=== PATIENT | male | born 1975 | race Caucasian/White ===

== ENCOUNTER → 2020-07-03 10:44 | Outpatient (BNVA) | payer MEDICARE, MEDICAID, SELFPAY | PROVIDERS: Family Provider Family Medicine; PCP Family Medicine; Visit Provider Nurse Practitioner | DX: Z11.59 Encounter for screening for other viral diseases (principal) | CPT/HCPCS: 87635 ==

== ENCOUNTER → 2021-06-23 09:26 | Outpatient (BNVA) | payer MEDICARE, MEDICAID, SELFPAY | PROVIDERS: Family Provider Family Medicine; PCP Family Medicine; Visit Provider Family Medicine | DX: F80.9 Developmental disorder of speech and language, unspecified (principal); F84.9 Pervasive developmental disorder, unspecified; Z76.89 Persons encountering health services in other specified circumstances; Z83.49 Family history of other endocrine, nutritional and metabolic diseases | CPT/HCPCS: 80053; 82103; 84443; 85025 ==

== ENCOUNTER → 2022-12-18 11:17 | Outpatient (BNVA) | payer MEDICARE, MEDICAID, SELFPAY | PROVIDERS: Family Provider Family Medicine; PCP Family Medicine; Visit Provider Family Medicine | DX: Z00.00 Encounter for general adult medical examination without abnormal findings (principal); Z13.6 Encounter for screening for cardiovascular disorders; Z83.49 Family history of other endocrine, nutritional and metabolic diseases; Z12.11 Encounter for screening for malignant neoplasm of colon; F84.9 Pervasive developmental disorder, unspecified; F80.9 Developmental disorder of speech and language, unspecified; Z76.89 Persons encountering health services in other specified circumstances | CPT/HCPCS: 80053; 80061; 82103; 85025 ==

== ENCOUNTER → 2023-01-19 13:38 | Outpatient (BNVA) | payer MEDICARE, MEDICAID, SELFPAY | PROVIDERS: Family Provider Family Medicine; PCP Family Medicine; Visit Provider Surgery | DX: Z80.0 Family history of malignant neoplasm of digestive organs (principal) | CPT/HCPCS: 99203; 99214 ==

== ENCOUNTER 2023-02-05 07:12 | Day surgery (SDC) | payer MEDICARE, MEDICAID, SELFPAY ==
[2023-02-03 14:10] VITALS: BMI 29.5
[2023-02-05 07:28] VITALS: BP 159/92; PULSE 70; RESP 16; TEMP 36.4; O2SAT 97
[2023-02-05] MEDS: sodium chloride 0.9% 1,000 ML 30 ML IV (07:41)
--- NOTE | 2023-02-05 07:44 | ANES.PREANE2 ---
Pre-Anesthetic Assessment Height/Weight: Height 1.75 m Weight 90.718 kg Temp Pulse Resp BP Pulse Ox O2 Del Method 97.5 F L 70 16 159/92 97 Room Air 02/05/23 07:28 02/05/23 07:28 02/05/23 07:28 02/05/23 07:28 02/05/23 07:28 02/05/23 07:28 Preop Diagnosis: family history of malignant neoplasm of colon Operation Date: 02/05/23 09:30 [place] Procedures p 89210 colon Z80.0(Not Applicable) - Alejandro Soler DO Familial anesthetic complications: never had anesthesia. Was Beta Luis taken within 24 hours: N/A Was Clonidine taken within 24 hours: N/A Last intake: Intake Last Liquid Date 02/05/23 Last Liquid Time 06:00 Last Solid Date 02/03/23 Social No alcohol and No tobacco Exam alert, oriented x 3, clear to auscultation bilaterally and regular rate & rhythm Airway Submandibular: within normal limits Cervical ROM: within normal limits Mallampati: Class I Dentition: chipped Comments: Comments: missing teeth Pulmonary None reported CV/HEM None reported None reported Hepatic None reported GI None reported Metabolic None reported Musc/skel None reported Neuropsych 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 Anesthetic Plan ASA status: 1 Anesthesia: MAC Medications/Allergies Home Medications Medication Instructions Recorded Confirmed Last Taken Type acetaminophen 325 mg tablet 325 mg PO QID PRN Pain 01/19/23 02/05/23 Unknown History (Tylenol) Allergies Allergy/AdvReac Type Severity Reaction Status Date / Time No Known Allergies Allergy Verified 02/05/23 07:27 Current Medications Generic Name Dose Route Start Last Admin Trade Name Freq PRN Reason Stop Dose Admin Sodium Chloride 1,000 mls @ 30 mls/hr 02/05/23 07:30 02/05/23 07:41 Sodium Chloride 0.9% IV 02/06/23 07:29 30 mls/hr .Q24H CRUZ Administration PFSH Anesthesia Medical History Hemorrhoids 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
--- NOTE | 2023-02-05 09:15 | W.PM.OPSUD ---
Surgery/Procedure H&P Update DATE OF PROCEDURE: February 05, 2023 DATE H&P PERFORMED: 01/19/23 H&P UPDATE INFORMATION: I have reviewed H&P completed within last 30 days, I have examined patient prior to procedure and No changes to prior documentation PREOP DIAGNOSIS: family history of malignant neoplasm of colon PLANNED PROCEDURE: Operation Date: 02/05/23 09:30 Proposed Procedures p [id number] colon Z80.0(Not Applicable) - Alejandro Soler DO
[2023-02-05 09:42] VITALS: BP 115/81; PULSE 74; RESP 14; TEMP 36.1; O2SAT 94
[2023-02-05 09:55] VITALS: BP 127/88; PULSE 64; RESP 16; O2SAT 97
[2023-02-05 10:08] VITALS: BP 122/84; PULSE 62; RESP 16; O2SAT 96
--- NOTE | 2023-02-05 16:07 | ANE.PACU2 ---
Inpatient post-anesthesia follow up: Airway intact: Yes Vital signs: Temperature 97 F Pulse Rate 62 Respiratory Rate 16 Blood Pressure 122/84 Pulse Oximetry 96 Oxygen Delivery Me thod Room Air Oxygen Flow Rate Fraction of Inspir ed Oxygen Hydration adequate: Yes Nausea and vomiting: No Pain level: 1 Mental status: Baseline
== END 2023-02-05 10:26 | disposition home or self-care (01) ==
PROVIDERS: PCP Family Medicine; Visit Provider Surgery
PROC: 0DJD8ZZ Inspection of Lower Intestinal Tract, Via Natural or Artificial Opening Endoscopic (ICD-10-PCS; CPT 45378; principal; 2023-02-05 09:30)
DX: Z12.11 Encounter for screening for malignant neoplasm of colon (principal); Z80.0 Family history of malignant neoplasm of digestive organs; F84.9 Pervasive developmental disorder, unspecified
CPT/HCPCS: 45378; G0121; J2704; J7030

== ENCOUNTER → 2023-02-23 17:13 | Outpatient (BNVA) | payer MEDICARE, MEDICAID, SELFPAY | PROVIDERS: PCP Family Medicine; Visit Provider Surgery | DX: Z09 Encounter for follow-up examination after completed treatment for conditions other than malignant neoplasm (principal) | CPT/HCPCS: 99212 ==

== ENCOUNTER 2023-08-31 11:41 | Emergency (ER) | payer MEDICARE, MEDICAID, SELFPAY ==
[2023-08-31 12:09] VITALS: BP 145/96; PULSE 93; RESP 18; TEMP 36.6; O2SAT 97; BMI 31.7
[2023-08-31 12:20] LABS: Basophils % 0.2 %; Eosinophils # 0.1 10^3/uL (0.0-0.8); Eosinophils % 2.1 %; Hematocrit 46.2 % (37-53); Lymphocytes # 2.3 10^3/uL (0.8-4.8); Lymphocytes % 43.7 %; Mean Corpuscular HGB Conc 35.5 g/dL (30-55); Mean Corpuscular Hemoglobin 30.3 pg (27-33); Mean Corpuscular Volume 85.4 fl (82-101); Mean Platelet Volume 9.4 fL (7.4-10.4); Monocytes # 0.5 10^3/uL (0.2-0.9); Neutrophils % 44.8 %; Nucleated Red Blood Cells % 0 %; Platelet Count 202 10^3/cmm (157-399); Red Blood Count 5.41 10^6/uL (3.85-5.65); Red Cell Distribution Width 12.7 % (12.1-15.1); White Blood Count 5.35 10^3/uL (3.29-11.43)
[2023-08-31 12:32] LABS: Alanine Aminotransferase 51 U/L (0-41); Albumin Level 4.2 g/dL (3.5-5.2); Alkaline Phosphatase 64 U/L (40-130); Anion Gap 13.8 (5-19); Aspartate Amino Transferase 33 U/L (0-40); Blood Urea Nitrogen 10 mg/dL (6-20); Calcium 9.2 mg/dL (8.5-10.5); Carbon Dioxide 26 mmol/L (22-29); Chloride 104 mmol/L (98-107); Globulin 3.3 g/dL (1.3-4.6); Glomerular Filtration Rate 90.8 mL/min (90-130); Glucose 149 mg/dL (65-115); Osmolality Calculated 292 mOsm/kg (285-295); Potassium 3.8 mmol/L (3.5-5.1); Sodium 140 mmol/L (136-145); Total Bilirubin 0.7 mg/dL (0.15-1.2); Total Protein 7.5 g/dL (6.6-8.7)
--- NOTE | 2023-08-31 12:41 | W.ED.GIBLEED ---
HPI - GI Bleed General: Chief complaint: COVID symptoms Stated complaint: sent over by urgent care, possible internal bleed Time Seen by Provider: 08/31/23 12:22 Source: patient and family (father) Mode of arrival: ambulatory Limitations: no limitations History of Present Illness: Patient is a 48-year-old male presents to ED today along with his father as he is mentally disabled here after they were sent from urgent care for concerns of bright red blood per rectum. According to the father they went to urgent care because patient has had a head cold . He reportedly tested positive for COVID while at urgent care. They mentioned he had had an episode of a small amount of bright red blood per rectum after straining to have a hard bowel movement and was sent to the emergency department for further evaluation of this. Father seems somewhat disgruntled upon his arrival here stating that patient has had this issue before when he has hard bowel movement stating he has a history of hemorrhoids. Patient is not having any rectal pain. Father states he just had one episode with a small amount of bright red blood and this is since stopped. He states he was not even concerned about the bleeding and simply went to urgent care because of the head cold . MD complaint: blood on toilet paper and other (small amount of BRBPR) Onset (ago): day(s) Severity: mild Exacerbating factors: other (straining during hard BM) Associated symptoms: Denies chills, fever(s), headache(s), malaise, nausea, rash or vomiting Treatments Prior to Arrival: none Review of Systems Const: Denies: fever(s), chills, body aches, fatigue or malaise Eyes: Denies: change in vision, blurry vision, photophobia, floaters or seeing flashes ENMT: Reports: nasal discharge and nasal congestion; Denies: throat pain, odynophagia or ear or mastoid pain Card: Denies: chest pain Resp: Denies: dyspnea, productive cough, non-productive cough or chest congestion GI: Reports: constipation (chronic) and other (small amount of BRBPR); Denies: nausea, vomiting, diarrhea, rectal pain, rectal swelling, rectal itching, melena or white/light colored stool Skin/Breast: Denies: rash Neuro: Denies: headache(s), numbness in extremities, weakness in extremities or sensory changes [facility] ED PFSH: Medical History 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 Hemorrhoids Surgical History No history of previous surgery Family History Father Hhewc-1-pnzjphbaylu deficiency Diabetes Hypertension CAD (coronary artery disease) Unknown Cancer colon cancer Denies family history of Anesthesia complication Bleeding disorder Social History Smoking and tobacco/nicotine status: never used tobacco/nicotine Alcohol intake: never Substance/Drug Use: never Lives independently: No Household members: family Marital status: Single Number of children: 0 Current occupational status: employed Current occupation: [employer] Physical Exam Const: COMMON NORMALS: no acute distress, average body habitus, patient oriented x3, no limitations, healthy appearing, alert and well nourished GENERAL APPEARANCE: cooperative HENMT: COMMON NORMALS: normocephalic, atraumatic, hearing grossly normal bilaterally, external ears normal, EAC's normal, TM's normal bilaterally, Normal external nose present, Normal nasal mucous membranes and turbinates present, moist oral mucous membranes, oropharynx normal, dentition normal and gingiva normal HEAD & SCALP: normal to inspection, normocephalic and atraumatic FACE & SINUS: normal facial exam NOSE: Normal external nose present and Normal nasal mucous membranes and turbinates present EXTERNAL EAR: Yes external ears normal EXTERNAL AUDITORY CANAL: EAC's normal TYMPANIC MEMBRANE: TM's normal bilaterally Eye: GENERAL EYE: appearance normal, both eyes and all related structures Neck/C-Spine: COMMON NORMALS: no lymphadenopathy Resp: COMMON NORMALS: normal respiratory effort and clear to auscultation bilaterally AUSCULTATION: clear to auscultation bilaterally Cardio: COMMON NORMALS: regular rate and regular rhythm RATE: regular rate RHYTHM: regular rhythm GI: COMMON NORMALS: Normal to inspection, nondistended, normoactive bowel sounds present, Soft to palpation, non-tender, No hepatosplenomegaly present and no masses PALPATION: Yes Soft to palpation and Yes No hepatosplenomegaly present RECTAL EXAM: Yes normal sphincter tone, Yes heme negative stool and Yes hemorrhoids (quarter sized non-thrombosed external hemorrhoid) Neuro: COMMON NORMALS: patient oriented x3 SENSORIUM/ORIENTATION: Yes alert Course Vital Signs: Vital signs: Vital Signs Temperature 97.9 F 08/31/23 12:09 Pulse Rate 78 08/31/23 12:52 Respiratory Rate 18 08/31/23 12:52 Blood Pressure 143/101 08/31/23 12:52 Pulse Oximetry 96 08/31/23 12:52 Oxygen Delivery Me thod Room Air 08/31/23 12:52 MDM - GI Bleed Medical Decision Making Patient here with complaints of a head cold as well as an episode of bright red blood per rectum following a hard bowel movement. He has had the small amount of bleeding before and it has always subsided on its own. Patient is not having any rectal pain. He arrives with stable vital signs. His H&H are normal. Negative Hemoccult. On exam he does have an external hemorrhoid most likely the source of the small amount of bleeding that he had. Nothing further that needs to be done at this time other than conservative therapies that he has done previously for his hemorrhoids such as OTC hemorrhoidal relief as well as Colace/MiraLAX to avoid straining. He did test positive for COVID at the urgent care clinic. He was given instructions for symptomatic care at home as well as quarantine precautions. Lab Data 08/31/23 12:04 08/31/23 12:04 Laboratory Results WBC 5.35 10^3/uL (3.29-11.43) 08/31/23 12:04 RBC 5.41 10^6/uL (3.85-5.65) 08/31/23 12:04 Hgb 16.40 g/dL (11.27-16.99) 08/31/23 12:04 Hct 46.2 % (37-53) 08/31/23 12:04 MCV 85.4 fl (82-101) 08/31/23 12:04 MCH 30.3 pg (27-33) 08/31/23 12:04 MCHC 35.5 g/dL (30-55) 08/31/23 12:04 RDW 12.7 % (12.1-15.1) 08/31/23 12:04 Plt Count 202 10^3/cmm (157-399) 08/31/23 12:04 MPV 9.4 fL (7.4-10.4) 08/31/23 12:04 Neut % (Auto) 44.8 % 08/31/23 12:04 Lymph % (Auto) 43.7 % 08/31/23 12:04 Turner % (Auto) 9.0 % 08/31/23 12:04 Eos % (Auto) 2.1 % 08/31/23 12:04 Baso % (Auto) 0.2 % 08/31/23 12:04 Neut # (Auto) 2.40 10^3/uL (1.8-7.7) 08/31/23 12:04 Lymph # (Auto) 2.3 10^3/uL (0.8-4.8) 08/31/23 12:04 Turner # (Auto) 0.5 10^3/uL (0.2-0.9) 08/31/23 12:04 Eos # (Auto) 0.1 10^3/uL (0.0-0.8) 08/31/23 12:04 Baso # (Auto) 0.0 10^3/uL (0.0-0.1) 08/31/23 12:04 Nucleated RBC % (auto) 0 % 08/31/23 12:04 Nucleated RBCs # 0.0 /100WBC 08/31/23 12:04 Sodium 140 mmol/L (136-145) 08/31/23 12:04 Potassium 3.8 mmol/L (3.5-5.1) 08/31/23 12:04 Chloride 104 mmol/L (98-107) 08/31/23 12:04 Carbon Dioxide 26 mmol/L (22-29) 08/31/23 12:04 Anion Gap 13.8 (5-19) 08/31/23 12:04 BUN 10 mg/dL (6-20) 08/31/23 12:04 Creatinine 0.9 mg/dL (0.7-1.2) 08/31/23 12:04 GFR Calculation 90.8 mL/min (90-130) 08/31/23 12:04 Glucose 149 mg/dL (65-115) H 08/31/23 12:04 Calculated Osmolality 292 mOsm/kg (285-295) 08/31/23 12:04 Calcium 9.2 mg/dL (8.5-10.5) 08/31/23 12:04 Total Bilirubin 0.7 mg/dL (0.15-1.2) 08/31/23 12:04 AST 33 U/L (0-40) 08/31/23 12:04 ALT 51 U/L (0-41) H 08/31/23 12:04 Alkaline Phosphatase 64 U/L (40-130) 08/31/23 12:04 Total Protein 7.5 g/dL (6.6-8.7) 08/31/23 12:04 Albumin 4.2 g/dL (3.5-5.2) 08/31/23 12:04 Globulin 3.3 g/dL (1.3-4.6) 08/31/23 12:04 No radiology studies performed this visit Discharge Plan Discharge Patient Disposition: Home Clinical Impression: COVID-19, External hemorrhoid, BRBPR (bright red blood per rectum) Condition: Stable Prescriptions: No Action acetaminophen [Tylenol] 325 mg tablet 325 mg PO QID PRN (Reason: Pain) Discharge Orders: Discharge ED (Routine); Ordered 08/31/23 Ordered By: Harmony Mckeon Referrals: Laurie Sandra MD [Primary Care Provider] - Activity Restrictions/Additional Instructions: As we discussed patient's rectal bleeding is most likely secondary to his hemorrhoid. He has a history of bleeding and hemorrhoids. Recommend you continue previous treatment such as Colace stool softeners and MiraLAX to avoid straining. If he continues to have bleeding or rectal pain he can follow-up with his primary care provider. Patient tested positive for COVID today. He will need to quarantine/be off work for a full 5 days. Following that if symptoms are improving he may return with mask wearing for an additional 5 days. 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
[2023-08-31 12:51] VITALS: O2SAT 100
[2023-08-31 12:52] VITALS: BP 143/101; PULSE 78; RESP 18; O2SAT 96
== END 2023-08-31 12:55 | disposition home or self-care (01) ==
PROVIDERS: Emergency Medicine; Emergency Provider Physician Assistant; PCP Family Medicine
DX: U07.1 COVID-19 (principal); K64.4 Residual hemorrhoidal skin tags
CPT/HCPCS: 36415; 80053; 85025; 87400; 87426; 99283

== ENCOUNTER → 2024-04-28 08:55 | Outpatient (BNVA) | payer MEDICARE, MEDICAID, SELFPAY | PROVIDERS: PCP Family Medicine; Visit Provider Family Medicine | DX: Z83.49 Family history of other endocrine, nutritional and metabolic diseases (principal) | CPT/HCPCS: 80053; 82103 ==

== ENCOUNTER → 2025-08-07 11:33 | Outpatient (BNVA) | payer MEDICARE, MEDICAID, SELFPAY | PROVIDERS: PCP Family Medicine; Visit Provider Surgery | DX: K43.9 Ventral hernia without obstruction or gangrene (principal) | CPT/HCPCS: 99204 ==

== ENCOUNTER 2025-08-15 13:22 | Outpatient (CLI) | payer MEDICARE, MEDICAID, SELFPAY ==
--- NOTE | 2025-08-15 14:45 | CTR_ITS ---
PROCEDURE INFORMATION: Exam: CT Abdomen And Pelvis With Contrast Exam date and time: 08/15/2025 2:52 PM Age: 50 years old Clinical indication: Abdominal pain; Generalized; hernia; Additional Info: ventral hernia, Has to be done prior to surgery scheduled 08/21/25 TECHNIQUE: Imaging protocol: Computed tomography of the abdomen and pelvis with contrast. Radiation optimization: All CT scans at this facility use at least one of these dose optimization techniques: automated exposure control; mA and/or kV adjustment per patient size (includes targeted exams where dose is matched to clinical indication); or iterative reconstruction. Contrast material: OMNIPAQUE 350; Contrast volume: 100 ml; Contrast route: INTRAVENOUS (IV); COMPARISON: No relevant prior studies available. RADIATION DOSE METRICS: Total DLP (mGy-cm): 596.27 FINDINGS: Lungs: The visualized portions of the lung bases are normal. Heart: Cardiac size is normal. No pericardial fluid. Coronary arteries: No coronary artery calcifications. Esophagus: Minimal gastroesophageal reflux. Liver: Liver is normal in size. There are no masses. No intrahepatic duct dilatation. Gallbladder and biliary ducts: One or more gallstones present, largest measuring 2.2 cm. There is no evidence of gallbladder wall thickening or pericholecystic fluid. Pancreas: Pancreas is normal in size, with some fatty change of the pancreatic head and uncinate region. There are no masses. No pancreatic duct dilatation. Spleen: Spleen is normal in size and position. There are no splenic masses. Adrenal glands: The adrenal glands are normal. Kidneys and ureters: The kidneys are normal in size and symmetrical in function. Some incidental subcentimeter renal cortical cysts on the left. No hydronephrosis. No renal stones identified. No ureteral stones are noted. Stomach and bowel: Mild diverticulosis noted. There is no definite evidence of extraluminal inflammation to suggest acute diverticulitis. No evidence of bowel obstruction or abnormal bowel wall thickening. Appendix: The appendix is short, possibly surgically absent, however no abnormal pericecal changes are present. Intraperitoneal space: Unremarkable. No free air. No significant fluid collection. Vasculature: There is no evidence of aortic aneurysm or dissection. No significant atherosclerotic changes noted. Lymph nodes: No pathologically enlarged retroperitoneal adenopathy appreciated. Urinary bladder: Urinary bladder is collapsed with a likely functionally thickened wall. Reproductive: Unremarkable as visualized. Bones/joints: The spine, sacroiliac joints, and hip joints are unremarkable. Soft tissues: Soft tissues of the visible body wall demonstrate no masses, ectopic air or fluid collections. There is a focal small umbilical ventral hernia measuring 1.5 cm at the abdominal wall gap. Minimal amount of small bowel protrudes into the defect. CT/CT abdomen pelvis w con* [id number] IMPRESSION: 1. There is a focal small umbilical ventral hernia measuring 1.5 cm at the abdominal wall gap. Minimal amount of small bowel protrudes into the defect. 2. Cholelithiasis. 3. Colonic diverticulosis. No diverticulitis. 4. Small subcentimeter renal cysts on the left. No further evaluation required. COMMENTS: Consistent with the [employer]'s Incidental Findings Committee white paper (J Am Marva Radiol 2018): Any incidental renal lesion less than 1 cm or classified as too small to characterize, or any incidental cystic renal lesion characterized as simple-appearing, is likely benign. No follow-up imaging is recommended for these lesions per consensus recommendations based on imaging criteria.
[2025-08-15] MEDS: iohexol 350 mg/mL 500 mL Btl (per mL) IV (15:00)
[2025-08-15] MEDS: iohexol 350 mg/mL 500 mL Btl (per mL) PO (15:00)
== END 2025-08-15 13:23 | disposition home or self-care (01) ==
LOC: RAD 13:30
PROVIDERS: PCP Nurse Practitioner Family; Visit Provider Surgery
DX: K43.9 Ventral hernia without obstruction or gangrene (principal); N28.1 Cyst of kidney, acquired; K57.90 Diverticulosis of intestine, part unspecified, without perforation or abscess without bleeding; K80.80 Other cholelithiasis without obstruction
CPT/HCPCS: 74177

== ENCOUNTER 2025-08-21 09:50 | Day surgery (SDC) | payer MEDICARE, MEDICAID, SELFPAY ==
[2025-08-21] VITALS (11 sets, daily range): BP systolic 127–148; BP diastolic 69–101; PULSE 72–84; RESP 18; TEMP 36.3–36.6; O2SAT 93–97; BMI 31.3
--- NOTE | 2025-08-21 10:08 | W.PM.OPSUD ---
Surgery/Procedure H&P Update DATE OF PROCEDURE: August 21, 2025 DATE H&P PERFORMED: 08/07/25 H&P UPDATE INFORMATION: I have reviewed H&P completed within last 30 days, I have examined patient prior to procedure, No changes to prior documentation, H&P is in [facility] EMR on date indicated and Risks and benefits of the procedure reviewed PLANNED PROCEDURE: Operation Date: 08/21/25 11:20 Proposed Procedures p Laparoscopic Possible Open Ventral Hernia Repair with Mesh(Not Applicable) - Mike Matamoros MD
--- NOTE | 2025-08-21 12:13 | ANES.PREANE2 ---
Pre-Anesthetic Assessment Height/Weight: Height 1.75 m Weight 96.162 kg Temp Pulse Resp BP Pulse Ox O2 Del Method 97.9 F 72 18 148/99 96 Room Air 08/21/25 10:20 08/21/25 10:20 08/21/25 10:20 08/21/25 10:20 08/21/25 10:20 08/21/25 10:20 Operation Date: 08/21/25 11:20 Proposed Procedures p Laparoscopic Possible Open Ventral Hernia Repair with Mesh(Not Applicable) - Mike Matamoros MD Familial anesthetic complications: None Was Beta Luis taken within 24 hours: N/A Was Clonidine taken within 24 hours: N/A Last intake: Intake Last Liquid Date 08/20/25 Last Liquid Time 19:30 Last Solid Date 08/20/25 Last Solid Time 19:30 Social No alcohol and No tobacco Exam alert, oriented x 3, clear to auscultation bilaterally and regular rate & rhythm Airway Mallampati: Class III Dentition: chipped and loose Metabolic Diabetes Mellitus and Hyperlipidemia Anesthetic Plan ASA status: 3 Anesthesia: General Risk of > 500 ml blood loss (7ml/kg in children): No Medications/Allergies Home Medications ?Medication ?Instructions ?Recorded ?Confirmed ?Last Taken ?Type acetaminophen 325 mg tablet 325 mg PO QID PRN Pain 01/19/23 08/20/25 Unknown History (Tylenol) metformin 500 mg tablet 500 mg PO DAILY 08/20/25 08/20/25 08/20/25 History rosuvastatin 20 mg tablet 20 mg PO DAILY 08/20/25 08/20/25 08/20/25 History Allergies Allergy/AdvReac Type Severity Reaction Status Date / Time No Known Allergies Allergy Verified 08/20/25 10:35 Current Medications Generic Name Dose Route Start Last Admin Trade Name Freq PRN Reason Stop Dose Admin Sodium Chloride 1,000 mls @ 30 mls/hr 08/21/25 10:00 08/21/25 10:32 Sodium Chloride 0.9% IV 08/22/25 09:59 30 mls/hr .Q24H CRUZ Administration PFSH Anesthesia Medical History 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 Hemorrhoids Surgical History (Updated 08/07/25 @ 11:47 by Fern Teresa LPN) No history of previous surgery Family History Father Yqyxc-3-qojkcrtisfa deficiency Diabetes Hypertension CAD (coronary artery disease) Unknown Cancer colon cancer Denies family history of Anesthesia complication Bleeding disorder Social History Smoking and tobacco/nicotine status: never used tobacco/nicotine Alcohol intake: never Substance/Drug Use: never Lives independently: No Household members: family Marital status: Single Number of children: 0 Current occupational status: employed Current occupation: sheltered workshop
[2025-08-21] MEDS: ceFAZolin 2,000 mg SDV 2000 MG IVP (12:42)
[2025-08-21] MEDS: BUPivacaine liposome 13.3 mg/mL SDV 20 mL 266 MG INJECTION (14:14)
[2025-08-21] MEDS: BUPivacaine 0.25% INJ 30 mL INJECTION (14:14)
--- NOTE | 2025-08-21 14:33 | PM.OP ---
Operative Report Date of procedure: August 21, 2025 Pre-op diagnosis: Incarcerated umbilical hernia Post-op diagnosis: Umbilical hernia Post-op findings: There was 3.5 cm umbilical hernia, the contents spontaneously reduced upon insufflation of the abdomen Procedure done: Laparoscopic repair of umbilical hernia measuring 3.5 cm, laparoscopic tap block Implants: 4.5 inches Ventralight mesh Specimens removed/disposition: None Surgeon: Mike Matamoros MD Electrician Control Equipment: CHEMA OR STaff Estimated blood loss: 5 Complications: none Brief History: 50-year-old male with a umbilical hernia who presented to my office for possible repair. After discussion of risk benefits as a documented in preop note we decided to proceed Procedure: Patient was brought into the OR, she was placed in a supine position. General anesthesia was given. The abdomen was prepped and draped in usual sterile fashion. A timeout was conducted. The abdomen was accessed via a 5 mm Optiview trocar in the left upper quadrant, initial pneumoperitoneum was obtained no evidence of visceral injury during entry. 12mm trocar was placed in the left flank under direct visualization and a 5 mm trocar was placed in the left lower quadrant also under direct visualization. An umbilical hernia was noted, I reduced the contents of the hernia into the abdomen, the hernia only containing fat. The edges of the hernia were clear or any fatty tissue using LigaSure. I then used a #0 PDS STRATAFIX suture to close the defect using laparoscopic suturing. Once the defect was closed I then placed 4.5 inch Ventralight mesh into the abdomen, with the positioning system I centered the mesh at the level of the hernia, the mesh was then fixed in a double crown fashion with secure strap. The exoskeleton of the mesh was then removed and retrieved from the abdomen. Good positioning and coverage of the mesh was noted. I then proceeded to do a bilateral tap block using Exparel mixed with bupivacaine injected 20 cc on the right side in the transverse abdominal plane) on the left side in the transverse abdominal plane guided by laparoscopy. the left lower quadrant trocar was removed under a visualization, the left flank trocar was removed and the trocar site was closed with #0 Vicryl using a Carmelo-Kamran suture passer under direct visualization. The left upper quadrant trocar was used to be evacuate pneumoperitoneum and subsequently removed. The wounds were closed in layers using #3-0 Vicryl for subtenons tissue and #4 Monocryl for the skin and Dermabond was applied. At the end of the procedure all counts were correct the patient tolerated well the procedure was transferred to the PACU in stable condition
[2025-08-21] MEDS: oxyCODONE 5 mg IR Tab/Cap PO (15:38)
--- NOTE | 2025-08-21 15:55 | ANE.PACU2 ---
Inpatient post-anesthesia follow up: Airway intact: Yes Vital signs: Temperature 97.4 F Pulse Rate 80 Respiratory Rate 18 Blood Pressure 142/86 Pulse Oximetry 97 Oxygen Delivery Me thod Room Air Oxygen Flow Rate 6 Fraction of Inspir ed Oxygen Hydration adequate: Yes Nausea and vomiting: No Pain level: 1 Mental status: Baseline
== END 2025-08-21 15:56 | disposition home or self-care (01) ==
PROVIDERS: PCP Nurse Practitioner Family; Visit Provider Surgery
PROC: 0WQF4ZZ Repair Abdominal Wall, Percutaneous Endoscopic Approach (ICD-10-PCS; CPT 49594; principal; 2025-08-21 11:10)
DX: K42.9 Umbilical hernia without obstruction or gangrene (principal); E11.9 Type 2 diabetes mellitus without complications; E78.5 Hyperlipidemia, unspecified; Z79.84 Long term (current) use of oral hypoglycemic drugs
CPT/HCPCS: 49594; 36416; 82962; C1781; J0330; J0666; J0690; J1100; J1885; J2250; J2405; J2704; J3010; J3490; J7030; J9999

== ENCOUNTER → 2025-09-04 11:03 | Outpatient (BNVA) | payer MEDICARE, MEDICAID, SELFPAY | PROVIDERS: PCP Nurse Practitioner Family; Visit Provider Surgery | DX: R03.0 Elevated blood-pressure reading, without diagnosis of hypertension (principal); Z98.890 Other specified postprocedural states | CPT/HCPCS: 99024 ==